=== PATIENT | male | born 1990 | race Caucasian/White ===

== ENCOUNTER 2019-07-05 23:09 | Emergency (ER) | payer OTHER ==
[~2019-07-05] VITALS: Ht 170.2 cm; Wt 64.4 kg
[2019-07-05 23:10] VITALS: Ht 170.2 cm; Wt 64.4 kg
[2019-07-05 23:37] VITALS: BP 133/97
== END 2019-07-05 23:37 | disposition home or self-care (01) ==
LOC: ED 23:09
DX: Z02.89 Encounter for other administrative examinations (principal)